=== PATIENT | female | born 1960 | race African-American/Black ===

== ENCOUNTER 2017-05-05 08:44 | Emergency (ER) | payer OTHER, MEDICAID ==
[~2017-05-05] VITALS: Ht 165.1 cm; Wt 137.0 kg
[2017-05-05] MEDS ORDERED: METH500T PO (09:04)
[2017-05-05] MEDS ORDERED: BENA40TA3 PO (09:04)
[2017-05-05] MEDS ORDERED: MELO-106 PO (09:04)
[2017-05-05] MEDS ORDERED: LABE100T PO (09:04)
[2017-05-05] MEDS ORDERED: LABETALOL HCL 200MG TABLET PO STA (09:28)
[2017-05-05] MEDS ORDERED: BENAZEPRIL 20MG TABLET PO SCH (09:30)
[2017-05-05] MEDS ORDERED: TRAMADOL 50MG TABLET PO ONE (09:30)
[2017-05-05 10:39] VITALS: BP 154/80
== END 2017-05-05 11:09 | disposition home or self-care (01) ==
LOC: ER 09:00
DX: G89.29 Other chronic pain (principal); M25.552 Pain in left hip; M19.90 Unspecified osteoarthritis, unspecified site; I10 Essential (primary) hypertension; F17.200 Nicotine dependence, unspecified, uncomplicated
CPT/HCPCS: 99284